=== PATIENT | male | born 2000 | race Caucasian/White ===

== ENCOUNTER 2022-08-01 16:16 | Outpatient (CLI) | payer OTHER, SELFPAY ==
--- NOTE | 2022-08-01 16:30 | MR_ITS ---
[facility] [address] [facility] [address] Phone:?[phone] Fax:?[phone] Referring Physician Information: Jaciel Mancera M.D. [address] [facility] [address] Phone:?[phone] Fax:?[phone] Patient:?Donaldo Lares D.O.B:?2000 Sex:?Male Phone:?[phone] [facility] MRN:?[id number] Exam Date:?08/01/2022 ? EXAM: MRI of the LEFT KNEE, without contrast CLINICAL: Male, 21 years old, with left knee pain since injury. INDICATION: Evaluate for internal derangement etiology. PRIOR SURGERY: None reported. PLAIN FILMS: None available. COMPARISONS: No prior MRIs of this left knee. TECHNICAL: Using a 1.5 Sandra MR scanner and a localizing surface coil: 3.0 mm?sagittals: PD, PDFS 3.0 mm?coronals: PD, STIR 3.0 mm?axials: PD, T2FS SEDATION: None. CONTRAST: None. IMPRESSION: 1. Acute-/subacute-appearing complete both bundle tear of the proximal anterior cruciate ligament. 2. Associated lateral pivot bone contusions and large knee effusion. 3. Suspected very short segment of meniscocapsular type 1 ramp lesion of medial meniscus posterior horn. 4. No lateral meniscus tear. 5. No collateral ligament or convincing posterolateral or posteromedial corner injury. FINDINGS: Knee joint: Effusion: Large left knee effusion. Popliteal cyst: None. Loose bodies: None. Subcutaneous and extra-articular soft tissues: Unremarkable. Bones: Pivot shift occult osseous injuries and bone contusions involve the anterolateral lateral femoral condyle greater than posterior rim of the lateral tibial plateau with minimal incomplete subcortical marrow trabecular microfracture of the lateral femoral condyle lesion, without significant depression/impaction without demonstrable overlying macroscopic chondral injury/defect Ligaments: ACL: Acute-/subacute-appearing marked sprain and complete both bundle tear of the proximal anterior cruciate ligament (sagittal image 17). PCL: Intact PCL, without acute or chronic injury. MCL: Intact MCL superficial and deep layers, without injury. FCL: Intact FCL, without injury. Posterolateral corner: No posterolateral corner soft tissue injury. Popliteus, biceps femoris, iliotibial band, popliteofibular ligament and lateral gastrocnemius are intact. Posteromedial corner: No posteromedial corner soft tissue injury. Semimembranosus, pes anserine tendons and posterior oblique ligament are without injury, tendinopathy or bursitis. Extensor mechanism: Patellar tendon: Intact, without tendinopathy. Quadriceps tendon: Intact, without tendinopathy. MPFL: Intact, without acute injury or residua of transient lateral patellar dislocation. Retinacula: Medial and lateral retinacula are intact. Fat pads: Unremarkable infrapatellar Hoffa's, quadriceps and prefemoral fat pads. Medial compartment: Medial meniscus: Suspected rather short segment of longitudinal vertical indistinctness of meniscosynovial junction of the medial meniscus posterior horn suspect for meniscocapsular injury in keeping with short segment type 1 ramp lesion (sagittal PD & PDFS series 5 & 6, images 10 & 9). No fragment displacement. No parameniscal cyst. No posterior root disruption or peripheral meniscal extrusion. Medial femoral condyle: No chondromalacia or osteochondral abnormality. Medial tibial plateau: No chondromalacia or osteochondral abnormality. Lateral compartment: Lateral meniscus: No articular surface, meniscosynovial junction or root tear. No displacement, extrusion or parameniscal cyst. Lateral femoral condyle: No macroscopic chondral abnormality associated with the pivot shift bone contusion mentioned above. Lateral tibial plateau: No macroscopic chondral abnormality associated with the pivot shift bone contusion mentioned above. Patellofemoral joint: Patella: Minimal less than 5 mm focus of-appearing chondral delamination of the medial patellar facet does not appear associated with convincing significant overlying articular cartilage surface extension although minimal fenestration might be difficult to exclude with certainty. No associated with subjacent reactive marrow edema (axial PDFS series 4, images 11 & 12). Trochlea: No chondromalacia or osteochondral abnormality. Proximal tibiofibular joint: Unremarkable, without evidence of ligament sprain injury, joint effusion or adjacent marrow edema. Neurovascular: Popliteal artery: No demonstrable popliteal artery entrapment or predisposing gastrocnemius variant. No aneurysm or pseudoaneurysm. Popliteal vein: No fusiform or saccular venous aneurysm. Anterior tibial artery: No aberrant high-origin anterior tibial artery. Tibial nerve: No entrapment or distal edema/swelling at the soleal sling. Popliteal nerve: No intrinsic or extrinsic mass or edema/swelling. Common peroneal nerve: Normal to fibular head and neck level included. F Electronically signed on 08/01/2022 7:38:00 PM by Carlton Bowles M.D.
== END 2022-08-01 16:17 | disposition home or self-care (01) ==
LOC: MRI 16:20
PROVIDERS: Visit Provider Family Medicine
DX: M25.562 Pain in left knee (principal); S83.512A Sprain of anterior cruciate ligament of left knee, initial encounter; M25.462 Effusion, left knee; S89.92XA Unspecified injury of left lower leg, initial encounter
CPT/HCPCS: 73721